=== PATIENT | male | born 1980 | race Caucasian/White ===

== ENCOUNTER 2016-08-04 02:39 | Emergency (ER) | payer OTHER ==
[~2016-08-04] VITALS: Ht 185.4 cm; Wt 100.0 kg
[2016-08-04] MEDS ORDERED: TETRACAINE 0.5% OPHTHALMIC SOLUTION 2 ML BTL OS ONE (02:55)
[2016-08-04] MEDS ORDERED: FLUORESCEIN (FLUOR-I-STRIPS) 1 MG STRIP OS ONE (02:55)
[2016-08-04] MEDS ORDERED: ED- HYDROcodone/ACETAMINOPHEN 5MG/325MG (NORCO) 6 TABLETS/BTL PO ONE (02:55)
[2016-08-04] MEDS ORDERED: KETOROLAC 60 MG/2 ML (TORADOL) VIAL IM ONE (02:55)
[2016-08-04] MEDS ORDERED: HYDROcodone/APAP 5 MG/325 MG (NORCO) TAB PO ONE (02:55)
[2016-08-04] MEDS ORDERED: ED- BACITRACIN/POLYMYXIN OPHTHALMIC OINT (AK-POLY-BAC) 3.5 GM TUBE OS ONE (03:55)
--- NOTE | 2016-08-04 04:00 | NUR ---
uanble to do a visual accuity d/t injury to left eye was close to pupil, uanble to keep eyes open, excessive watering.
[2016-08-04 04:13] VITALS: BP 122/82
== END 2016-08-04 04:10 | disposition home or self-care (01) ==
LOC: ED 02:42
DX: S05.02XA Injury of conjunctiva and corneal abrasion without foreign body, left eye, initial encounter (principal); W22.8XXA Striking against or struck by other objects, initial encounter; Y93.89 Activity, other specified; Y92.828 Other wilderness area as the place of occurrence of the external cause
CPT/HCPCS: 96372; 99283; J1885